=== PATIENT | female | born 1995 | race Caucasian/White ===

== ENCOUNTER 2018-04-04 03:25 | Emergency (ER) | payer MEDICAID ==
[2018-04-04 05:52] LABS: Bilirubin,Urine NEG (Negative); Blood,Urine NEG (Negative); Color,Urine Yellow (Yellow); Mucus,Urine 3+ /HPF
[2018-04-04 05:54] LABS: HCG Qualitative,Urine Negative (Negative)
--- NOTE | 2018-04-04 09:41 | Emergency Department Report ---
ED Female HPI - General Chief complaint: Urogenital-Female Stated complaint: VAGINAL DISCHARGE WITH ODOR Source: patient Mode of arrival: Ambulatory Limitations: No Limitations - History of Present Illness Initial comments: This is a 22-year-old -[place] female who presents with vaginal discharge and pelvic pain for 2 days. Patient states her partner told her he was diagnosed with chlamydia yesterday. Patient states she has been taking aspirin with no improvement of symptoms. Patient states symptoms started prior to being told of exposure to STD. She is now complaining of large amount of greenish vaginal discharge with odor and suprapubic pain. Patient denies frequency, urgency, dysuria, low back pain, and fever. MD Complaint: vaginal discharge, pelvic pain, possible STD Onset/Timin -: days(s) Location: suprapubic Radiation: non-radiating Severity: mild Severity scale (0 -10): 3 Quality: cramping Consistency: constant Improves with: none Worsens with: none Are you Now?: No Last Menstrual Period: 03/29/18 EDC: 01/03/19 Associated Symptoms: vaginal discharge, abdominal pain. denies: vaginal bleeding, nausea/vomiting, fever/chills, headaches, loss of appetite, dysuria, hematuria, rash, seizure, shortness of breath, syncope, weakness - Related Data Sexually active: Yes Previous Rx's Medication Instructions Recorded Last Taken Type Promethazine [Phenergan TAB] 25 mg PO Q6HR PRN #20 tab 06/02/15 Unknown Rx Fluconazole [Diflucan] 150 mg PO ONCE #1 tablet 04/04/18 Unknown Rx metroNIDAZOLE [Metronidazole] 500 mg PO BID #14 tablet 04/04/18 Unknown Rx Allergies Allergy/AdvReac Type Severity Reaction Status Date / Time pecan nut AdvReac Rash Verified 06/02/15 15:12 ED Review of Systems ROS: Stated complaint: VAGINAL DISCHARGE WITH ODOR Other details as noted in HPI Constitutional: denies: chills, fever Respiratory: denies: cough, shortness of breath, wheezing Cardiovascular: denies: chest pain, palpitations Gastrointestinal: abdominal pain (lower abdominal pain). denies: nausea, diarrhea Genitourinary: discharge. denies: urgency, dysuria Musculoskeletal: denies: back pain, joint swelling, arthralgia Skin: denies: rash, lesions Neurological: denies: headache, weakness, paresthesias Psychiatric: denies: anxiety, depression ED Past Medical Hx - Past Medical History Previous Medical History?: No - Surgical History Past Surgical History?: Yes Additional Surgical History: TONSILLECTOMY - Social History Smoking Status: Never Smoker Substance Use Type: None - Medications Home Medications: Home Medications Medication Instructions Recorded Confirmed Last Taken Type Promethazine [Phenergan TAB] 25 mg PO Q6HR PRN #20 tab 06/02/15 Unknown Rx Fluconazole [Diflucan] 150 mg PO ONCE #1 tablet 04/04/18 Unknown Rx metroNIDAZOLE [Metronidazole] 500 mg PO BID #14 tablet 04/04/18 Unknown Rx ED Physical Exam - General Limitations: No Limitations General appearance: alert, in no apparent distress - Respiratory Respiratory exam: Present: normal lung sounds bilaterally. Absent: respiratory distress - Cardiovascular Cardiovascular Exam: Present: regular rate, normal rhythm. Absent: systolic murmur, diastolic murmur, rubs, gallop - GI/Abdominal GI/Abdominal exam: Present: soft, tenderness (mild suprapubic tenderness), normal bowel sounds. Absent: distended, guarding, rebound, rigid, organomegaly , mass - External exam: Present: normal external exam Speculum exam: Present: vaginal discharge (malodorous greenish-yellow discharge) . Absent: erythema, cervical discharge, vaginal bleeding, foreign body, tissue , laceration Bi-manual exam: Present: normal bi-manual exam - Back Exam Back exam: Present: normal inspection. Absent: CVA tenderness (R), CVA tenderness (L) - Neurological Exam Neurological exam: Present: alert, oriented X3 - Psychiatric Psychiatric exam: Present: normal affect, normal mood - Skin Skin exam: Present: warm, dry, intact, normal color. Absent: rash ED Course Vital Signs 04/04/18 04:24 Temperature 99.0 F Pulse Rate 88 Respiratory 12 Rate Blood Pressure 135/75 O2 Sat by Pulse 100 Oximetry ED Medical Decision Making - Lab Data Lab Results 04/04/18 Range/Units 05:24 Urine Color Yellow (Yellow) Urine Turbidity Slightly-cloudy (Clear) Urine pH 5.0 (5.0-7.0) Ur Specific [place] 1.034 H (1.003-1.030) Urine Protein 30 mg/dl (Negative) mg/dL Urine Glucose (UA) Neg (Negative) mg/dL Urine Ketones Tr (Negative) mg/dL Urine Blood Neg (Negative) Urine Nitrite Neg (Negative) Urine Bilirubin Neg (Negative) Urine Urobilinogen 2.0 (<2.0) mg/dL Ur Leukocyte Esterase Lg (Negative) Urine WBC (Auto) 109.0 H (0.0-6.0) /HPF Urine RBC (Auto) 12.0 (0.0-6.0) /HPF U Epithel Cells (Auto) 2.0 (0-13.0) /HPF Urine Mucus 3+ /HPF Urine HCG, Qual Negative (Negative) - Medical Decision Making This is a 22-year-old -[place] female who presents with vaginal discharge and suprapubic discomfort for 2 days. Patient was examined by me. Vitals are stable and in no acute distress. Obtained labs. Wet prep obtained via pelvic exam, positive yeast and clue cells, negative Trichomonas. Empirically treated with Rocephin 250 mg IM and azithromycin 1 g by mouth. Start metronidazole and Diflucan. Discharged home in stable condition. Discussed prevention options. F/U with PCP or Health Department. Critical care attestation.: If time is entered above; I have spent that time in minutes in the direct care of this critically ill patient, excluding procedure time. ED Disposition Clinical Impression: Exposure to STD, Bacterial vaginitis, Vulvovaginal candidiasis Disposition: - TO HOME OR SELFCARE Is pt being admited?: No Does the pt Need Aspirin: No Condition: Stable Instructions: Bacterial Vaginosis (ED), Vulvovaginal Candidiasis (ED) Additional Instructions: Complete full course of antibiotics as prescribed. Avoid drinking alcohol while taking antibiotics and for 24 hours after completion. Continue safe sexual intercourse. Follow up with Primary Care Provider or health department. Prescriptions: Fluconazole [Diflucan] 150 mg PO ONCE #1 tablet metroNIDAZOLE [Metronidazole] 500 mg PO BID #14 tablet Referrals: [facility] [Outside] - 3-[address] [facility] [place] [Outside] - 3-5 Days [facility] [Outside] - 3-5 Days Forms: STI Treatment and Prevention Time of Disposition: 10:34 Print Language: LIBYAN
[2018-04-04] MEDS ORDERED: ZITHROMAX PO ONE (10:27)
[2018-04-04] MEDS ORDERED: XYLOCAINE 1% MPF 5 mL INFILTRATI ONE (10:27)
[2018-04-04] MEDS ORDERED: ROCEPHIN IM ONE (10:27)
[2018-04-04 11:01] VITALS: BP 132/72
== END 2018-04-04 11:00 | disposition home or self-care (01) ==
LOC: ED 03:25
DX: B37.3 Candidiasis of vulva and vagina (principal); N76.0 Acute vaginitis; B96.89 Other specified bacterial agents as the cause of diseases classified elsewhere; Z20.2 Contact with and (suspected) exposure to infections with a predominantly sexual mode of transmission; Z90.89 Acquired absence of other organs; Z91.018 Allergy to other foods
CPT/HCPCS: 81001; 81025; 87210; 87591; 96372; 99284; J0696

== ENCOUNTER 2019-03-19 04:42 | Emergency (ER) | payer MEDICAID ==
[2019-03-19 04:53] VITALS: BP 131/77
[2019-03-19] MEDS ORDERED: PERCOCET 5/325 PO STA (06:31)
[2019-03-19] MEDS ORDERED: ZOFRAN ODT PO STA (06:32)
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
== END 2019-03-19 06:58 | disposition home or self-care (01) ==
LOC: ED 04:42
DX: K08.89 Other specified disorders of teeth and supporting structures (principal); Z98.890 Other specified postprocedural states; Z79.899 Other long term (current) drug therapy; Z91.010 Allergy to peanuts
CPT/HCPCS: 99282; Q0162

== ENCOUNTER 2019-05-27 16:37 | Emergency (ER) | payer MEDICAID, OTHER ==
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
[2019-05-27] MEDS ORDERED: CYCLOBENZAPRINE 10 MG TAB PO ONE (21:18)
[2019-05-27] MEDS ORDERED: IBUPROFEN 600 MG TAB PO ONE (21:18)
[2019-05-27] MEDS ORDERED: ACETAMINOPHEN 500 MG TAB PO ONE (21:18)
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
[2019-05-28 00:37] VITALS: BP 148/92
== END 2019-05-27 23:40 | disposition home or self-care (01) ==
LOC: ED 16:37
DX: S63.91XA Sprain of unspecified part of right wrist and hand, initial encounter (principal); S00.83XA Contusion of other part of head, initial encounter; S00.03XA Contusion of scalp, initial encounter; S10.93XA Contusion of unspecified part of neck, initial encounter; F17.200 Nicotine dependence, unspecified, uncomplicated; Z90.89 Acquired absence of other organs; Z79.899 Other long term (current) drug therapy; Z91.010 Allergy to peanuts; V49.49XA Driver injured in collision with other motor vehicles in traffic accident, initial encounter; Y93.89 Activity, other specified; Y92.410 Unspecified street and highway as the place of occurrence of the external cause; Y99.8 Other external cause status
CPT/HCPCS: 70450; 70486; 72125

== ENCOUNTER 2021-02-17 16:42 | Outpatient (CLI) | payer MEDICAID ==
[2021-02-17 17:27] LABS: Amphetamine Screen,Urine Negative; Benzodiazepines Screen,Urine Negative; Cocaine Screen,Urine Negative; Methadone Screen,Urine Negative; Opiate Screen,Urine Negative
[2021-02-17] MEDS ORDERED: BETAMET ACET/BETAMET NA PH 6 MG/ML INJ 5 ML MDV IM SCH (17:30)
[2021-02-17 17:39] LABS: Cannabinoid Screen,Urine Positive
[2021-02-17 18:22] LABS: Hemoglobin 11.1 gm/dl (10.1-14.3); Mean Corpuscular HGB Conc 35 % (30-34); Mean Corpuscular Volume 94 fl (79-97); Platelet Count 101 K/mm3 (140-440); Red Blood Count 3.42 M/mm3 (3.65-5.03); Red Cell Distribution Width 13.6 % (13.2-15.2)
[2021-02-17] MEDS ORDERED: LACTATED RINGERS 1,000 ML ONE (18:27)
[2021-02-17] MEDS ORDERED: LACTATED RINGERS 1,000 ML IV SCH (18:45)
[2021-02-17 19:40] VITALS: BP 112/63
--- NOTE | 2021-02-18 09:13 | Ultrasound Report ---
ULTRASOUND OBSTETRIC INDICATION / CLINICAL INFORMATION: RUT, EFW. Clinical Gestational Age (GA) in weeks, days: 33, 6 TECHNIQUE: Transabdominal. COMPARISON: None available. FINDINGS: Single intrauterine . Biparietal Diameter = 8.4 cm = 33, 6 weeks, days Head Circumference = 28.4 cm = 31, 1 weeks, days Abdominal Circumference = 26.7 cm = 30, 6 weeks, days Femur Length = 6.3 cm = 32, 4 weeks, days Average Ultrasound Age (AUA) = 32, 1 weeks, days Heart Rate: 138 beats per minute. Estimated Weight in grams (if calculated): 1805 Estimated Weight Growth Percentile (if calculated): 3 Position: cephalic. Amniotic Fluid Volume: normal Amniotic Fluid Index (RUT) in cm (if calculated): 12.8. IMPRESSION: 1. Single, living intrauterine with estimated sonographic age of 32, 1 weeks, days. 2. Fetus measures small for clinical dates. ULTRASOUND BIOPHYSICAL PROFILE INDICATION / CLINICAL INFORMATION: RUT, EFW. COMPARISON: None available. FINDINGS: BREATHING MOVEMENT = 2 GROSS BODY MOVEMENT = 2 TONE = 2 QUALITATIVE AMNIOTIC FLUID VOLUME = 2 TOTAL BIOPHYSICAL SCORE = 02/27 AMNIOTIC FLUID INDEX (cm) = 12.81 PRESENTATION: Cephalic. HEART RATE (beats per minute): 138 IMPRESSION: 1. biophysical profile = 02/27 Signer Name: Efe Solano MD Signed: 02/17/2021 5:46 PM Workstation Name: [id number]
== END 2021-02-17 20:34 | disposition home or self-care (01) ==
LOC: TRG 16:42 → APU 16:46 → TRG 20:34
PROVIDERS: ATTEND Obstetrics & Gynecology
DX: O62.9 Abnormality of forces of labor, unspecified (principal); Z3A.33 33 weeks gestation of pregnancy
CPT/HCPCS: 36415; 59025; 76816; 76819; 80307; 82731; 84112; 85027; 96360; 96361; 96372; J0702; J7120

== ENCOUNTER 2021-02-18 16:54 | Outpatient (CLI) | payer MEDICAID ==
[2021-02-18] MEDS ORDERED: BETAMET ACET/BETAMET NA PH 6 MG/ML INJ 5 ML MDV IM ONE (18:30)
== END 2021-02-18 18:14 | disposition home or self-care (01) ==
LOC: TRG 16:54 → APU 16:57 → TRG 18:14
PROVIDERS: ATTEND Obstetrics & Gynecology
DX: O62.9 Abnormality of forces of labor, unspecified (principal); Z3A.34 34 weeks gestation of pregnancy
CPT/HCPCS: 96372; J0702